=== PATIENT | female | born 1990 | race Caucasian/White ===

== ENCOUNTER 2019-12-29 10:24 | Emergency (ER) | payer OTHER ==
[~2019-12-29] VITALS: Ht 160 cm; Wt 53.1 kg
[2019-12-29 10:30] VITALS: BP 126/74
[2019-12-29 11:07] LABS: BASOPHILS % (AUTO) 0.6 % (0.0-2.0); EOSINOPHILS % (AUTO) 0.7 % (0.0-4.0); HEMATOCRIT 42.6 % (36-48); HEMOGLOBIN 14.4 g/dL (12.0-16.0); LYMPHOCYTES % (AUTO) 31.8 % (20.5-51.1); MEAN CORPUSCULAR HEMOGLOBIN 32 pg (27-31); MEAN CORPUSCULAR HGB CONC 34 g/dL (33-37); MEAN CORPUSCULAR VOLUME 92.8 fL (80-94); MONOCYTES # (AUTO) 0.5 K/uL (0.8-1.0); MONOCYTES % (AUTO) 7.8 % (1.7-9.3); NEUTROPHILS # (AUTO) 3.8 K/uL (1.8-7.7); NEUTROPHILS % (AUTO) 59.1 % (42.2-75.2); RED BLOOD CELL COUNT(AUTO) 4.58 MIL/uL (4.20-5.40); RED CELL DISTRIBUTION WIDTH 12.9 % (11.6-13.7); WHITE BLOOD COUNT (AUTO) 6.4 K/uL (4.8-10.8)
[2019-12-29 11:18] LABS: APPEARANCE,URINE CLEAR (CLEAR); BILIRUBIN,URINE NEGATIVE (NEGATIVE); BLOOD, URINE TRACE-I (NEGATIVE); COLOR,URINE YELLOW (YELLOW); LEUKOCYTE ESTERASE ,URINE 1+ (NEGATIVE); NITRITE, URINE NEGATIVE (NEGATIVE); UGLUCOSE NEGATIVE (NEGATIVE)
[2019-12-29 11:19] LABS: ANION GAP 12.7 (8-16); CARBON DIOXIDE 28.7 mmol/L (21-32); POTASSIUM 3.4 mmol/L (3.5-5.1)
[2019-12-29 11:20] LABS: CREATININE 0.6 mg/dL (0.6-1.3); TOTAL BILIRUBIN 0.6 mg/dL (0.0-1.0)
[2019-12-29 11:36] LABS: PLATELET COUNT (AUTO) 137 K/uL (140-450)
[2019-12-29 11:36] LABS: RBC,URINE 0-5 /HPF (0-5)
[2019-12-29 12:36] VITALS: BP 145/71
== END 2019-12-29 12:35 | disposition home or self-care (01) ==
LOC: MED 10:24
DX: O03.9 Complete or unspecified spontaneous abortion without complication (principal); O99.111 Other diseases of the blood and blood-forming organs and certain disorders involving the immune mechanism complicating pregnancy, first trimester; D69.6 Thrombocytopenia, unspecified; Z3A.08 8 weeks gestation of pregnancy
CPT/HCPCS: 36415; 76801; 80053; 81001; 81025; 84702; 85025; 86900; 86901; 87086; 99284; Q0092